=== PATIENT | female | born 1985 | race Caucasian/White ===

== ENCOUNTER 2016-09-16 01:49 | Inpatient (IN) | payer OTHER ==
[~2016-09-16] VITALS: Ht 162.6 cm; Wt 75.7 kg
[2016-09-16] VITALS (7 sets, daily range): BP systolic 123–154; BP diastolic 78–88
--- NOTE | 2016-09-16 02:15 | NUR ---
PT PRESENTS TO ED WITH C/O RUQ ABD PAIN RADIATING TO BACK. PT REPORTS PAIN APPROX X1 MONTH. PT REPORTS PAIN IS INTERMITTENT AND PROGRESSIVELY LASTING LONGER. PT DENIES ANY N/V/D/C. PT DENIES ANY FEVERS. PT REPORTS PAIN STARTED AFTER GIVING IN JULY OF THIS YEAR. RESPIRATIONS EVEN AND UNLABORED. NO ACUTE DISTRESS NOTED. BED IN LOW POSITION. CALL LIGHT WITHIN REACH.
[2016-09-16 02:53] LABS: CALCIUM 9.9 mg/dL (8.5-10.1); CARBON DIOXIDE 28.4 mmol/L (21-32); CHLORIDE SERUM 103 mmol/L (98-107); CREATININE SERUM 0.9 mg/dL (0.6-1.0); GFR1 > 60 mL/min; GLUCOSE SERUM 98 mg/dL (74-106); POTASSIUM SERUM 3.4 mmol/L (3.5-5.1); SODIUM SERUM 141 mmol/L (136-145)
[2016-09-16 02:57] LABS: ALBUMIN 4.3 g/dL (3.4-5.0); ALKALINE PHOSPHATASE 109 U/L (46-116); ALT/SGPT 41 U/L (14-59); AST/SGOT 40 U/L (15-37); BILIRUBIN TOTAL 0.57 mg/dL (0.20-1.00); LIPASE 324 IU/L (73-393); TOTAL PROTEIN, SERUM 7.6 g/dL (6.4-8.2)
[2016-09-16 02:58] LABS: BASOPHIL % 0.2 % (0-2); PLATELET COUNT 196 x10^3mcL (130-400); RED CELL DISTRIBUTION WIDTH 13.7 % (11.5-14.5)
--- NOTE | 2016-09-16 03:25 | NUR ---
PT LAYING IN BED, IN POSITION OF COMFORT. PT REPORTS PAIN 2/10 AT THIS TIME, STATES PAIN IS TOLERABLE. RESPIRATIONS EVEN AND UNLABORED. NO ACUTE DISTRESS NOTED. BED IN LOW POSITION. CALL LIGHT WITHIN REACH.
[2016-09-16] MEDS ORDERED: PROTONIX40 MG PO (04:29)
[2016-09-16] MEDS ORDERED: VENTOLIN H0.09 MG/A1 INH (04:30)
--- NOTE | 2016-09-16 04:30 | NUR ---
PT REFUSED PAIN MEDS, PT STATES PAIN IS TOLERABLE AT THIS TIME.
--- NOTE | 2016-09-16 04:42 | NUR ---
PORTABLE XRAY AT BEDSIDE.
--- NOTE | 2016-09-16 04:53 | NUR ---
REPORT GIVEN TO [facility].
[2016-09-16 05:15] LABS: microscopic required? YES; urine erythrocyte TRACE (NEGATIVE)
[2016-09-16 05:36] LABS: CHOLESTEROL/HDL RATIO 2.9; MAGNESIUM 1.9 mg/dL (1.8-2.4)
[2016-09-16 05:36] LABS: AMPHETAMINE QUAL UR NONE DETECTED (NEG <=1000)
[2016-09-16 05:40] LABS: T3 TOTAL 0.96 ng/mL
[2016-09-16 06:02] LABS: FREE T4 1.09 ng/dL (0.76-1.46); FREE THYROXINE INDEX 3.5 ug/dL (1.4-4.5); T4(THYROXINE) 9.5 ug/dL (4.7-13.3)
--- NOTE | 2016-09-16 06:32 | NUR ---
RECEIVED PT FROM ED, ORIENTED TO ROOM. NO ACUTE DISTRESS. A/O X4. TELE #24 SHOWING NSR. DENIES CHEST PAIN. PULSES PALPABLE IN ALL EXTREMITIES, NO EDEMA NOTED. LUNG SOUNDS CTA BILATERALLY. BOWEL SOUNDS ACTIVE, LAST BM 09/16/16. VOIDING WELL. AMBULATORY. SKIN INTACT. PT STATES PREVIOUS ABD PAIN, HOWEVER NO PAIN AT THIS TIME. IV PATENT AND INTACT. BED IN LOWEST POSITION, SIDE RAILS UP X2, SCDS IN PLACE, CALL LIGHT WITHIN REACH. WILL ENDORSE CARE TO ONCOMING NURSE.
--- NOTE | 2016-09-16 07:17 | NUR ---
RECEIVED REPORT FROM [facility]ERIN AT THIS TIME. PATIENT RESTING IN BED AWAKE, ALERT AND O X4. TELE # [address] ON ROOM AIR, NO DISTRESS NOTED. DENIES PAIN AT THIS TIME. IV TO RIGHT HAND IN PLACE. SCDS AT THE BEDSIDE. INSTRUCTED ON USE OF CALL LIGHT. WILL CONTINUE TO MONITOR.
--- NOTE | 2016-09-16 10:08 | NUR ---
PATIENT DOWN TO O.R. AT THIS TIME.
--- NOTE | 2016-09-16 13:10 | NUR ---
PATIENT RETURNED FROM O.R. AT THIS TIME. VS: TEMP 96.8, BP 154/88, HR 65, MAP 110, O2 95% ON 2L VIA NC. PATIENT IS DROSWY. 4 ABD INCISIONS WITH BI, AND BANDAIDS, CLEAN DRY INTACT. CAYDEN DRAIN IN PLACE WITH SMALL AMOUNT OF SANGUINEOUS DRAINAGE. CALL LIGHT WITH IN REACH. FAMILY AT THE BEDSIDE. WILL CONTINUE TO MONITOR.
--- NOTE | 2016-09-16 13:56 | NUR ---
PT C/O NAUSEA, MEDICATED ORDERD
--- NOTE | 2016-09-16 14:50 | NUR ---
DR. LOCKETT IN TO SEE PATIENT AND DISCUSS PLAN OF CARE WITH PATIENT AND FAMILY AT THIS TIME. QUESTIONS AND CONCERNS ADDRESSED. WILL CONTINUE TO MONITOR.
--- NOTE | 2016-09-16 17:55 | NUR ---
IN TO SEE PATIENT AND GIVE DUE MEDICATION (SEE EMAR). PATIENT RESTING IN BED, NO DISTRESS NOTED. PATIENT STATES PAIN TO ABD IS BURNING, /10. MEDICATED WITH PRN MEDICATION (SEE EMAR). FAMILY AT THE BEDSIDE. WILL CONTINUET TO MONITOR.
--- NOTE | 2016-09-16 20:00 | NUR ---
RECEIVED PT IN BED AWAKE , ALERT, AND ORIENTED. PT IS S/P LAP CHUCKY. FOUR INCISIONS WITH BANDAIDS IN PLACE. CDI. CAYDEN DRAIN IN PLACE, NO DRAINAGE NOTED AT THIS TIME. LUNGS CLEAR AND ON ROOM AIR. BOWEL SOUNDS ACTIVE , PT VOIDS WITHOUT DIFFICULTY. SKIN INTACT. NO C/O PAIN NOTED AT THIS TIME. IV IN THE RIGHT HAND INFUSING NS @ 110CC/HR. NO INFILTRATION NOTED. INSTRUCTED PT TO USE CALL LIGHT IF NEEDS ASSISTANCE WITH ANYTHING. CALL LIGHT IN REACH. WILL MONITOR.
--- NOTE | 2016-09-16 22:34 | NUR ---
PT C/O PAIN AND RECEIVED 2MG MORPHINE IVP AT THIS TIME. RESPIRATIONS EVEN AND UNLABORED. WILL MONITOR PT.
--- NOTE | 2016-09-17 00:30 | NUR ---
PT STATES THAT SHE IS FEELING MUCH BETTER AT THIS TIME. PAIN LEVEL IS NOW 5/10 BUT IS A TOLERABLE PAIN GOAL. WILL CONTINUE TO MONITOR PT.
--- NOTE | 2016-09-17 03:30 | NUR ---
PT SLEEPING AT THIS TIME WITH NO DISTRESS NOTED. IV INFUSING WELL WITH NO INFILTRATION NOTED. CALL LIGHT IN REACH. WILL MONITOR.
--- NOTE | 2016-09-17 05:18 | NUR ---
PT RESTING COMFORTABLY IN BED AT THIS TIME. PT STATES THAT HER PAIN IS IN MUCH MORE CONTROL AND SHE IS FEELING MUCH BETTER. WILL MONITOR PT.
--- NOTE | 2016-09-17 06:09 | NUR ---
PT HAS NO C/O PAIN. PT COMFORTABLE. PROVIDED PT WITH WARM BLANKET PER PT REQUEST. PT STABLE AT THIS TIME, WILL ENDORSE TO THE A.M SHIFT NURSE.
[2016-09-17 06:36] VITALS: BP 135/78
[2016-09-17 07:09] LABS: BASOPHIL % 0.1 % (0-2); PLATELET COUNT 194 x10^3mcL (130-400); RED CELL DISTRIBUTION WIDTH 13.4 % (11.5-14.5)
[2016-09-17 07:12] LABS: ALKALINE PHOSPHATASE 148 U/L (46-116); ALT/SGPT 412 U/L (14-59); AST/SGOT 177 U/L (15-37); BILIRUBIN TOTAL 0.59 mg/dL (0.20-1.00); CALCIUM 8.3 mg/dL (8.5-10.1); CARBON DIOXIDE 26.3 mmol/L (21-32); CHLORIDE SERUM 106 mmol/L (98-107); CREATININE SERUM 0.7 mg/dL (0.6-1.0); GFR1 > 60 mL/min; GLUCOSE SERUM 93 mg/dL (74-106); MAGNESIUM 1.9 mg/dL (1.8-2.4); PHOSPHOROUS 3.2 mg/dL (2.5-4.9); POTASSIUM SERUM 3.8 mmol/L (3.5-5.1); SODIUM SERUM 140 mmol/L (136-145); TOTAL PROTEIN, SERUM 6.3 g/dL (6.4-8.2)
[2016-09-17 07:14] LABS: ALBUMIN 3.3 g/dL (3.4-5.0)
--- NOTE | 2016-09-17 07:50 | NUR ---
RECEIVED PT FROM NOC SHIFT. AAOX4 WITH NO C/O PAIN AT THIS TIME. IVF TO RT HAND AT 115ML/HR CDI. BREATH SOUNDS CLEAR BILATERALLY. ABDOMEN SOFT AND ROUND WITH ACTIVE BOWEL SOUNDS, 4 DRESSINGS WITH CAYDEN DRAIN NOTED CDI. PULSES PRESENT WITH NO EDEMA NOTED. ASSISTED PT TO STAND TO AMBULATE IN ROOM. CALL LIGHT WITHIN REACH.
[2016-09-17 09:00] VITALS: BP 137/83
--- NOTE | 2016-09-17 09:55 | NUR ---
PT SITTING UP IN BED WITH VISITORS AT BEDSIDE. PO NORCO GIVEN FOR PT C/O PAIN AT SURGICAL SITES. CALL LIGHT WITHIN REACH.
--- NOTE | 2016-09-17 12:20 | NUR ---
PT SITTING UP IN BED FOR LUNCH WITH NO C/O PAIN AT THIS TIME. CALL LIGHT WITHIN REACH.
[2016-09-17 13:15] VITALS: BP 123/74
--- NOTE | 2016-09-17 14:45 | NUR ---
PT GIVEN PO NORCO FOR C/O ABD PAIN.
--- NOTE | 2016-09-17 17:00 | NUR ---
PT RESTING IN BED WATCHING TV WITH NO C/O PAIN AT THIS TIME. CALL LIGHT WITHIN REACH.
--- NOTE | 2016-09-17 18:20 | NUR ---
PT RESTING IN BED WITH NO C/O PAIN AT THIS TIME. CALL LIGHT WITHIN REACH. WILL ENDORSE TO NOC SHIFT.
[2016-09-17 19:06] VITALS: BP 116/77
--- NOTE | 2016-09-17 19:30 | NUR ---
PT IS A/O X4, VERBAL RESPONSIVE, ABLE TO TELL WHAT SHE NEEDS, LUNG SOUND CLEAR BILATERAL, NO COUGH, NO SOB, PT DENY ANY CHEST PAIN OR DISCOMFORT, BOWEL SOUND PRESENT ALL 4 QUADRANTS, HYPOACTIVE, NO DISTENTION, S/P LAP CHUCKY, 4 BANDAIDS AT ABD, NO BLEEDING, NO DRAINAGE, CAYDEN DRAINAGE TUBE AT RIGHT UPPER QUADRANTS, SANGUINEOUS, PT C/O MILD PAIN 3/10 WHEN SHE WAS WALKING, NO MEDICATION REQUIRED AT THIS TIME, IV AT RIGHT HAND, NO LEAKING, NO INFILTRATION. ALL ADLS ASSIST, ALL NEED MET, CALL LIGHT IN REACH, WILL CONTINUE TO MONITOR.
[2016-09-17 21:27] VITALS: BP 132/79
--- NOTE | 2016-09-18 05:03 | NUR ---
PT IS SLEEPING, AWAKE BY TOUCH, NO RESPIRATORY DISTRESS, DENY ANY PAIN OR DISCOMFORT, IV AT RIGHT HAND, NO LEAKING, NO INFILTRATION. ALL ADLS ASSIST, ALL NEED MET, CALL LIGHT IN REACH, WILL CONTINUE TO MONITOR.
[2016-09-18 05:33] VITALS: BP 128/75
[2016-09-18 06:15] LABS: BASOPHIL % 0.3 % (0-2); PLATELET COUNT 175 x10^3mcL (130-400)
[2016-09-18 06:17] LABS: CALCIUM 8.2 mg/dL (8.5-10.1); CARBON DIOXIDE 31.6 mmol/L (21-32); CHLORIDE SERUM 106 mmol/L (98-107); CREATININE SERUM 0.8 mg/dL (0.6-1.0); GFR1 > 60 mL/min; GLUCOSE SERUM 94 mg/dL (74-106); SODIUM SERUM 141 mmol/L (136-145)
--- NOTE | 2016-09-18 07:20 | NUR ---
RECEIVED Pt. AAOX4. RESPIRATIONS EVEN AND UNLABORED. DENIES PAIN/DISCOMFORT AT THIS TIME. NO DISTRESS NOTED. Pt. REPORTED BEING ABLE TO PASS GAS. ABD SOFT/FLAT X 4 BAND AID CDI, X1 CAYDEN DRAIN SEROSANGUINOUS DRAINAGE NOTED. IVF RUNNING TO IV AT RIGHT HAND PATENT AND INTACT. BED LOW/LOCKED. CALL LIGHT IN REACH.
--- NOTE | 2016-09-18 08:30 | NUR ---
MADE ROUNDS WITH DR. VARELA AND MEDICINE TEAM, Pt. POSSIBLE DISCHARGE TODAY AND AGREED WITH PLAN OF CARE.
[2016-09-18 09:08] VITALS: BP 121/81
[2016-09-18] MEDS ORDERED: COL100 PO (10:07)
[2016-09-18] MEDS ORDERED: ACETAMINOPHEN-H1 TA1 PO (10:07)
--- NOTE | 2016-09-18 10:50 | NUR ---
Pt. C/O ABDOMINAL PAIN 5/10 SCALE, NORCO 5/325 MG GIVEN WILL CONTINUE TO MONITOR.
[2016-09-18 12:07] VITALS: BP 121/81
[2016-09-18 12:43] VITALS: BP 123/90
--- NOTE | 2016-09-18 12:47 | NUR ---
REMOVED CAYDEN DRAIN AND Pt. TOLERATED PROCEDURE WELL. CAYDEN DRAIN WITH 15 ML SEROSANGUINOUS DRAINAGE NOTED. DSG APPLIED CDI.
--- NOTE | 2016-09-18 12:50 | NUR ---
Pt. DENIES PAIN/DISCOMFORT POST NORCO.
--- NOTE | 2016-09-18 13:30 | NUR ---
DR. LOCKETT AT BEDSIDE INSTRUCTED Pt. TO AVOID IMMEDIATELY AFTER TAKING NARCOTIC PAIN MEDICATION AND ANSWERED Pt. QUESTIONS. Pt. VERBALIZED UNDERSTANDING.
--- NOTE | 2016-09-18 13:52 | NUR ---
Pt. AAOX4 ALL RX AND DISCHARGE INSTRUCTIONS EXPLAINED TO Pt. AND VERBALIZED UNDERSTANDING. AWAITING FOR TRANSPORTATION TO ARRIVE.
--- NOTE | 2016-09-18 15:10 | NUR ---
Pt. AAOX4. RESPIRATIONS EVEN AND UNLABORED. DENIES PAIN/DISCOMFORT, DENIES ABD PAIN AT THIS TIME. DENIES DIZZINESS/HEADACHE. NO DISTRESS NOTED. IV AT RIGHT HAND REMOVED WITH CATH INTACT. NO BLEEDING NOTED DSG CDI. ABD X4 BAND AID CDI, OLD CAYDEN SITE WITH DSG CDI NO DRAINAGE NOTED. Pt. LEFT WITH ALL BELONGINGS.
== END 2016-09-18 15:11 | disposition home or self-care (01) | DRG 263 ==
LOC: ED 01:49 → DU 04:26 → MU 04:26 → DU 05:15 → MU 09-17 09:21
PROVIDERS: Emergency Medicine; Surgery; ADMIT Family Medicine
PROC: 0FT44ZZ Resection of Gallbladder, Percutaneous Endoscopic Approach (ICD-10-PCS; principal; 2016-09-16 11:30)
DX: K80.00 Calculus of gallbladder with acute cholecystitis without obstruction (principal); N17.0 Acute kidney failure with tubular necrosis; E43 Unspecified severe protein-calorie malnutrition; N13.30 Unspecified hydronephrosis; N20.1 Calculus of ureter; E11.65 Type 2 diabetes mellitus with hyperglycemia; D69.6 Thrombocytopenia, unspecified; N39.0 Urinary tract infection, site not specified; I16.0 Hypertensive urgency; R31.9 Hematuria, unspecified; J45.909 Unspecified asthma, uncomplicated; F41.9 Anxiety disorder, unspecified; E87.6 Hypokalemia; Z68.28 Body mass index [BMI] 28.0-28.9, adult
CPT/HCPCS: 80307; 83880; 84439; 94150; G0480; J0696; J1170; J1885; J2001; J2270; J2405; J3010; J3490; J7030; J7620; Q0092